=== PATIENT | male | born 1990 | race Caucasian/White ===

== ENCOUNTER 2017-04-21 00:43 | Emergency (ER) | payer OTHER | END 2017-04-21 02:55 | disposition other institution (70) | LOC: ED 00:43 | DX: Z53.21 Procedure and treatment not carried out due to patient leaving prior to being seen by health care provider (principal) ==

== ENCOUNTER 2017-04-21 00:43 | Emergency (ER) | payer SELFPAY ==
[2017-04-21 02:55] VITALS: BP 134/77
== END 2017-04-21 02:55 | disposition other institution (70) ==
LOC: ED 00:43
DX: S09.90XA Unspecified injury of head, initial encounter (principal); X58.XXXA Exposure to other specified factors, initial encounter; Y93.89 Activity, other specified; Y99.8 Other external cause status; Y92.89 Other specified places as the place of occurrence of the external cause